=== PATIENT | male | born 1990 | race African-American/Black ===

== ENCOUNTER 2017-10-26 09:44 | Emergency (ER) | payer SELFPAY ==
[~2017-10-26] VITALS: Ht 188 cm; Wt 86.0 kg
[2017-10-26] MEDS ORDERED: IBUPROFEN 600MG TABLET PO STA (14:19)
[2017-10-26 16:10] VITALS: BP 130/66
== END 2017-10-26 17:50 | disposition home or self-care (01) ==
LOC: ER 10:22
DX: S00.03XA Contusion of scalp, initial encounter (principal); S60.212A Contusion of left wrist, initial encounter; S80.02XA Contusion of left knee, initial encounter; S90.32XA Contusion of left foot, initial encounter; F15.10 Other stimulant abuse, uncomplicated; V19.88XA Pedal cyclist (driver) (passenger) injured in other specified transport accidents, initial encounter; Y93.89 Activity, other specified; Y92.89 Other specified places as the place of occurrence of the external cause; Y99.8 Other external cause status
CPT/HCPCS: 70450; 73110; 73562; 73630; 99284; Z7610